=== PATIENT | female | born 2005 ===

== ENCOUNTER 2024-05-23 06:10 | Outpatient (REF) | payer BC, SELFPAY | END 2024-05-23 06:11 | disposition home or self-care (01) | LOC: HO.UMASIMG 06:10 | PROVIDERS: Visit Provider Family Medicine | DX: R10.2 Pelvic and perineal pain (principal); M25.551 Pain in right hip; M25.552 Pain in left hip | CPT/HCPCS: 76830; 76856 ==

== ENCOUNTER → 2024-05-23 08:30 | Outpatient (BNV) | payer BC, SELFPAY | PROVIDERS: Visit Provider Radiology Diagnostic Radiology | DX: R10.2 Pelvic and perineal pain (principal) | CPT/HCPCS: 76830; 76856 ==